=== PATIENT | female | born 1945 | race Caucasian/White ===

== ENCOUNTER 2021-02-19 09:55 | Outpatient (CLI) | payer MEDICARE, SELFPAY ==
--- NOTE | ~2021-02-19 | MM_ITS ---
EXAMINATION: MM screening fani BI w patrick HISTORY: Screening TECHNIQUE: Craniocaudal and mediolateral oblique 3-D tomosynthesis images were obtained and synthetic 2-D images were generated. CAD analysis was submitted and interpreted. COMPARISON: Comparison to multiple prior studies sequentially, with oldest reviewed study dated 06/25. BREAST PARENCHYMAL COMPOSITION: There are scattered areas of fibroglandular density. FINDINGS: There is no evidence of suspicious mass, calcification, or architectural distortion to sugg est malignancy in either breast. There has been no suspicious interval change. IMPRESSION: 1. No mammographic evidence of malignancy. 2. Recommend routine screening mammography in one year. BI-RADS Category 1: Negative Reviewed, dictated and finalized at location A.
== END 2021-02-19 09:56 | disposition home or self-care (01) ==
LOC: ANHIMG 10:01
PROVIDERS: PCP Family Medicine; Visit Provider Family Medicine
DX: Z12.31 Encounter for screening mammogram for malignant neoplasm of breast (principal)
CPT/HCPCS: 77063; 77067

== ENCOUNTER 2022-02-25 09:52 | Outpatient (CLI) | payer MEDICARE, SELFPAY ==
--- NOTE | ~2022-02-25 | MM_ITS ---
EXAMINATION: MM screening fani BI w patrick HISTORY: Screening mammogram TECHNIQUE: Craniocaudal and mediolateral oblique 3-D tomosynthesis images were obtained and synthetic 2-D images were generated. CAD analysis was submitted and interpreted. COMPARISON: 02/19/2021, 09/07/2019, 01/07/2018 bilateral screening mammogram examinations BREAST PARENCHYMAL COMPOSITION: The breasts are almost entirely fatty. FINDINGS: Scattered bilateral benign calcifications. There is no evidence of suspicious mass, calcifi cation, or architectural distortion to suggest malignancy in either breast. There has been no suspici ous interval change. IMPRESSION: 1. No mammographic evidence of malignancy. 2. Recommend routine screening mammography in one year. BI-RADS Category 2: Benign finding(s). Reviewed, dictated and finalized at location A.
== END 2022-02-25 09:53 | disposition home or self-care (01) ==
LOC: ANHIMG 09:54
PROVIDERS: PCP Family Medicine; Visit Provider Family Medicine
DX: Z12.31 Encounter for screening mammogram for malignant neoplasm of breast (principal)
CPT/HCPCS: 77063; 77067

== ENCOUNTER 2022-07-24 01:16 | Day surgery (SDC) | payer MEDICARE, SELFPAY ==
[2022-07-23 15:32] VITALS: BMI 39.3
[2022-07-24] VITALS (9 sets, daily range): BP systolic 91–125; BP diastolic 52–72; PULSE 68–147; RESP 15–24; O2SAT 97–100
--- NOTE | 2022-07-24 11:25 | ECG_ITS ---
Measurements Intervals [place] Rate: 129 P: [place]: 0 QRS: 0 QRSD: 92 T: 0 QT: 173 QTc: 253 Interpretive Statements ATRIAL FIBRILLATION WITH RAPID VENTRICULAR RESPONSE NONSPECIFIC ST & T-WAVE ABNORMALITY ABNORMAL RHYTHM ECG COMPARED TO ECG 04/05/2019 09:47:32 ATRIAL FIBRILLATION REPLACES SINUS RHYTHM Electronically Signed On 07-24-2022 14:08:56 CDT by Hugo Whitten M.D.
[2022-07-24] MEDS: SODIUM CHLORIDE 0.9% IV 500 ML 30 ML IV CONT (11:53)
[2022-07-24 11:55] LABS: Anion Gap 13 mmol/L (8-16); Blood Urea Nitrogen 19 mg/dL (7-17); Carbon Dioxide 28 mmol/L (22-30); Chloride 101 mmol/L (98-107); Estimated CRCL calculation 68 ml/min; Estimated Glomerular Filt Rate > 60; Glucose 161 mg/dL (65-110); Magnesium 1.6 mg/dL (1.6-2.3); Potassium 3.3 mmol/L (3.4-5.0); Sodium 142 mmol/L (137-145)
--- NOTE | 2022-07-24 11:59 | SUR.PREOP ---
Informed home specialistLILY Esteban that patient missed [facility] for endoscopy on 07/04, 07/05, 07/06 and AM of 07/07. She resumed PM 07/07. and that I was going to notify Dr. Whitten to see if she needed a WAYLON. Per Eulalia Whitten was notified yesterday and it is also mentioned in the office note per Maki Hunter NP and that reportedly WAYLON was not needed.
--- NOTE | 2022-07-24 12:11 | SUR.PREOP ---
Dr. Whitten contacted and informed patient's HR has been 130s-150s at times and BP now 98/57. Also informed BMI is close to 40, potassium level is 3.3 and Mag level 1.6 on today's labs. Patient reported some new lightheadedness as BP has trended down some today.
[2022-07-24] MEDS: POTASSIUM CHLORIDE 20 MEQ TABLET 40 MEQ PO (12:46)
--- NOTE | 2022-07-24 13:21 | SUR.PREOP ---
Dr. Whitten at bedside discussing procedure with patient and .
--- NOTE | 2022-07-24 13:31 | WPDMODSED ---
Moderate Sedation Note-Pt Data Patient Data Diagnosis: Recurrent atrial fibrillation Obesity Sleep apnea Present Complaint: Palpitations Procedure to be performed/Plan: DC cardioversion Allergies Allergy/AdvReac Type Severity Reaction Status Date / Time aspirin AdvReac Unknown Nausea Verified 07/24/22 11:33 ibuprofen AdvReac Unknown Nausea Verified 07/24/22 11:33 meloxicam AdvReac Unknown Nausea Verified 07/24/22 11:33 Home Medications Medication Instructions Recorded Confirmed Type Adults Multivitamin 1 tablet PO DAILY 07/23/22 07/23/22 History Bifidobacterium infantis 4 mg PO DAILY 07/23/22 07/24/22 History Ocuvite 1 tablet PO DAILY 07/23/22 07/24/22 History apixaban 5 mg tablet (Eliquis) 5 mg PO BID 07/23/22 07/24/22 History atorvastatin 10 mg tablet 10 mg PO DAILY 07/23/22 07/24/22 History calcium carbonate-vitamin D3 500 unit PO DAILY 07/23/22 07/24/22 History candesartan 4 mg PO DAILY 07/23/22 07/24/22 History hydrochlorothiazide 25 mg tablet 25 mg PO DAILY 07/23/22 07/24/22 History metformin 500 mg tablet 500 mg PO BID 07/23/22 07/24/22 History potassium chloride 10 mEq 10 meq PO DAILY 07/23/22 07/24/22 History tablet,extended release(part/cryst) sotalol 80 mg tablet 40 mg PO BID 07/23/22 07/24/22 History Current Medications: Active Medications Apixaban (Apixaban 5 Mg Tablet) 5 mg PO BID [facility] Atorvastatin Calcium (Atorvastatin 10 Mg Tablet) 10 mg PO DAILY [facility] Hydrochlorothiazide (Hydrochlorothiazide 25 Mg Tablet) 25 mg PO DAILY [facility] Sodium Chloride (Normal Saline Iv) 500 mls @ 30 mls/hr IV CONT .[id number] [id number] Stop: 07/25/22 04:15 Last Admin: 07/24/22 11:53 Dose: 30 mls/hr Metformin HCl (Metformin Hcl 500 Mg Tablet) 500 mg PO BID [facility] Non-Formulary Medication (Adults Multivitamin) 1 tablet PO DAILY [facility] Stop: 08/24/22 08:59 Non-Formulary Medication (Bifidobacterium Infantis) 4 mg PO DAILY [facility] Stop: 08/24/22 08:59 Non-Formulary Medication (Calcium Carbonate-Vitamin D3) 500 unit PO DAILY [facility] Stop: 08/24/22 08:59 Non-Formulary Medication (Candesartan) 4 mg PO DAILY [facility] Stop: 08/24/22 08:59 Non-Formulary Medication (Ocuvite) 1 tablet PO DAILY [facility] Stop: 08/24/22 08:59 Potassium Chloride (Potassium Chloride 10 Meq Tablet.Er) 10 meq PO DAILY [facility] Sotalol HCl (Sotalol Hcl 40 Mg Tablet) 40 mg PO BID [facility] Sedation/Anesthesia: No previous sedation/anesthesia problems (including family history). [facility] Family History Family History (Updated 03/24/17 @ 15:45 by DOCTOR UNKNOWN) Other Cerebrovascular accident Family history of arthritis Social History Social History Smoking status: Never smoker Alcohol intake: current Living arrangements: with family Spiritual care concerns: No Mod Sed Physical Exam Physical Exam Pre Procedural Exam: Normal: Neck, Throat, Airway, Lungs, Heart Size, Neuro Exam and Extremities and Variation: Appearance (Pleasant obese lady no distress), Heart Rate and Heart Rhythm (Tachycardic/irregularly irregular) Hours since solid foods: 12 Hours since liquid intake: 12 Mallampati Classification: class II Internal Medicine - PN: Obj Da Vital Signs Vital Signs: Vital Signs - 24 hr 07/24/22 11:46 Pulse Rate 83 Respiratory Rate 17 Blood Pressure 120/67 Pulse Oximetry 99 Oxygen Delivery Room Air Meds/Results Medications: Active Medications Generic Name Dose Route Start Last Admin Trade Name Freq PRN Reason Stop Dose Admin Apixaban 5 mg 07/24/22 17:00 Apixaban 5 Mg Tablet PO BID [facility] Atorvastatin Calcium 10 mg 07/25/22 09:00 Atorvastatin 10 Mg Tablet PO DAILY [facility] Hydrochlorothiazide 25 mg 07/25/22 09:00 Hydrochlorothiazide 25 Mg Tablet PO DAILY [facility] Sodium Chloride 500 mls @ 30 mls/hr 07/24/22 11:36 07/24/22 11:53 Normal Saline Iv IV CONT 07/25/22 04:15 30 mls/hr .[id number] JYOTI Administration Metformin HCl 500 mg 07/24/22 17:00 Metformin Hcl 500 Mg Tablet PO BID [facility] Non-Formular
--- NOTE | 2022-07-24 13:32 | WPDCARDPROC ---
Cardiac Cath Procedure Note Date of procedure:: 07/24/22 Performing physician:: Hugo Whitten MD Indication:: Recurrent atrial fibrillation Brief clinical history:: This is a 77-year-old lady with a history of paroxysmal atrial fibrillation which has been attributed to obesity and sleep apnea. She was seen in the office yesterday with a symptomatic recurrence of atrial fibrillation and was admitted today as an outpatient for an attempt at cardioversion Procedure Procedure performed:: DC cardioversion Sedation/Medication given:: Intravenous propofol total dosage to 60 mg Estimated blood loss:: No blood loss Procedure note:: Patient was brought to the cardiac catheterization lab holding area in the postabsorptive state she had defibrillator patches placed in AP position and was placed in the supine positions. The defibrillator was synchronized at 200 joules. She was then given intravenous propofol in aliquots a total dosage of 60 mg provided very good sedation. She was counter shocked with 200 joules x1 shock restoring normal sinus rhythm. Findings:: As above Conclusion:: Successful uncomplicated DC cardioversion terminating atrial fibrillation restoring sinus rhythm using 200 joules x1 shock Hugo Whitten MD [facility]
--- NOTE | 2022-07-24 14:00 | ECG_ITS ---
Measurements Intervals [place] Rate: 76 P: 36 [place]: 130 QRS: -8 QRSD: 105 T: 73 QT: 413 QTc: 465 Interpretive Statements SINUS RHYTHM WITH OCCASIONAL SUPRAVENTRICULAR PREMATURE COMPLEXES NONSPECIFIC T-WAVE ABNORMALITY COMPARED TO ECG 07/24/2022 11:25:02 SINUS RHYTHM REPLACES ATRIAL FIBRILLATION Electronically Signed On 07-24-2022 14:13:11 CDT by Hugo Whitten M.D.
== END 2022-07-24 14:30 | disposition home or self-care (01) ==
LOC: ANHCATHLAB 01:21 → ANHCARD 12:59 → ANHCATHLAB 07-31 09:19
PROVIDERS: PCP Family Medicine; Visit Provider Specialist
PROC: 5A2204Z Restoration of Cardiac Rhythm, Single (ICD-10-PCS; principal; 2022-07-24 12:30)
DX: I48.0 Paroxysmal atrial fibrillation (principal); G47.30 Sleep apnea, unspecified; E66.9 Obesity, unspecified; Z68.39 Body mass index [BMI] 39.0-39.9, adult; Z79.01 Long term (current) use of anticoagulants; Z79.84 Long term (current) use of oral hypoglycemic drugs
CPT/HCPCS: 36415; 80048; 83735; 92960; A9270; J2704; J7040

== ENCOUNTER → 2023-09-10 13:15 | Outpatient (CLI) | payer MEDICARE, SELFPAY ==
--- NOTE | ~2023-09-10 | XR_ITS ---
Left Knee Technique: AP, lateral, and sunrise views were obtained. Clinical History: Pain Findings: No fracture or dislocation is seen. Osseous alignment is anatomic. There is moderate to adv anced tricompartment osteoarthritis, worst at the medial and patellofemoral compartments. There is pr ominent osteophyte formation and medial and patellofemoral compartment narrowing. Soft tissues are un remarkable. No joint effusion is seen. Impression: Moderate to advanced tricompartmental osteoarthritis, as detailed above. Reviewed, dictated and finalized at location M. [employer] Impression: Moderate to advanced tricompartmental osteoarthritis, as detailed above.
== END ==
PROVIDERS: PCP Family Medicine; Visit Provider Family Medicine
DX: M17.12 Unilateral primary osteoarthritis, left knee (principal)
CPT/HCPCS: 73562

== ENCOUNTER 2024-08-02 20:44 | Emergency (ER) | payer MEDICARE, SELFPAY ==
[2024-08-02 20:49] VITALS: BP 193/70; PULSE 73; RESP 16; TEMP 36.8; O2SAT 98
[2024-08-02 23:20] VITALS: BP 164/60; PULSE 63; RESP 15; O2SAT 97
--- NOTE | 2024-08-03 01:21 | ECG_ITS ---
Test Date: 2024-08-03 01:33:51 Measurements Intervals [place] Rate: 60 P: 36 MS: 154 QRS: -18 QRSD: 118 T: 40 QT: 456 QTc: 457 Interpretive Statements SINUS RHYTHM MODERATE INTRAVENTRICULAR CONDUCTION DELAY [110+ ms QRS DURATION] No previous ECG available for comparison Electronically Signed On 08-03-2024 11:42:48 CDT by Lee Jaramillo M.D.
[2024-08-03 01:39] LABS: Basophils Percent Auto 0.4 % (0.2-1.2); Eosinophils Absolute Auto 0.2 K/mm3 (0-0.3); Eosinophils Percent Auto 2.1 % (0-4.4); Hematocrit 39.7 % (37.0-47.0); Hemoglobin 13.3 g/dL (12.0-15.0); Immature Granulocyte Absolute 0.04 K/mm3 (0.00-0.031); Immature Granulocyte Percent A 0.4 % (0-0.5); Lymphocytes Absolute Auto 2.15 K/mm3 (0.9-3.2); Lymphocytes Percent Auto 20.1 % (18.3-44.2); Mean Corpuscular HGB Conc 33.5 g/dl (32-36); Mean Corpuscular Hemoglobin 30.4 pg (26-34); Mean Corpuscular Volume 90.6 fl (80-100); Mean Platelet Volume 9.5 fl (7.4-10.4); Monocytes Absolute Auto 0.9 K/mm3 (0.1-0.6); Monocytes Percent Auto 7.9 % (2.6-8.5); Neutrophils Absolute Auto 7.4 K/mm3 (1.3-6.7); Neutrophils Percent Auto 69.1 % (45.5-73.1); Platelet Count Result 190 k/mm3 (150-375); Red Blood Count 4.38 M/mm3 (4.2-5.4); Red Cell Distribution Width 13.4 % (11.5-14.5); White Blood Count 10.7 K/mm3 (4.5-10.0)
[2024-08-03 01:47] LABS: Alanine Aminotransferase 17 U/L (6-35); Albumin Level 4.1 g/dL (3.5-5.1); Alkaline Phosphatase 67 U/L (38-126); Anion Gap 5 mmol/L (4-12); Aspartate Amino Transferase 22 U/L (14-36); Bilirubin,Total 0.6 mg/dL (0.2-1.3); Blood Urea Nitrogen 18 mg/dL (7-17); Calcium 9.1 mg/dL (8.4-10.2); Carbon Dioxide 30 mmol/L (22-30); Chloride 104 mmol/L (98-107); Estimated CRCL calculation 77 ml/min; Estimated Glomerular Filt Rate > 60; Glucose 133 mg/dL (65-110); Potassium 3.5 mmol/L (3.4-5.0); Sodium 139 mmol/L (137-145)
[2024-08-03 01:56] VITALS: BP 152/66; PULSE 60; RESP 16; O2SAT 98
[2024-08-03 01:58] LABS: Troponin I < 0.012 ng/mL (0.000-0.034)
--- NOTE | 2024-08-03 02:17 | ED_ITS ---
HPI - General Adult General Chief complaint: Recheck/Abnormal Lab/Rx Stated complaint: blood pressure high Time Seen by Provider: 08/03/24 01:03 History of Present Illness HPI narrative: Patient 79-year-old female presents emergency department chief complaint of hypertension. Patient reports she has history of hypertension reports that she has noticed her blood pressure is running on the higher side the patient reports that today she had some tightness in her chest and decided to come to the emergency department this evening. Related Data Home Medications Medication Instructions Recorded Confirmed Adults Multivitamin 1 tablet PO DAILY 07/23/22 05/25/24 Bifidobacterium infantis 4 mg PO DAILY 07/23/22 05/25/24 Ocuvite 1 tablet PO DAILY 07/23/22 05/25/24 calcium carbonate-vitamin D3 500 unit PO DAILY 07/23/22 05/25/24 Allergies Allergy/AdvReac Type Severity Reaction Status Date / Time aspirin AdvReac Unknown Nausea Verified 08/02/24 20:49 ibuprofen AdvReac Unknown Nausea Verified 08/02/24 20:49 meloxicam AdvReac Unknown Nausea Verified 08/02/24 20:49 Review of Systems Review of Systems: A 10 system review of systems was completed on the patient and is negative except for what is stated in the HPI. Nursing and ancillary documentation was reviewed. 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 Chronic atrial fibrillation, unspecified Essential (primary) hypertension Morbid (severe) obesity due to excess calories Obstructive sleep apnea (adult) (pediatric) Osteoarthritis of both knees Pure hypercholesterolemia, unspecified Secondary pulmonary arterial hypertension Type 2 diabetes mellitus without complications Family History Family History Other Cerebrovascular accident Family history of arthritis Social History Social History Smoking status: Never smoker Alcohol intake: current Alcohol use details: social Substance use: never Substance use type: does not use Lack of Transportation: No Lack of Food: Never True Current Housing: I Have Housing Concerned About Future Housing: No Difficulty Paying Gas/Electric Bills: No Difficulty Paying for Meds: No Currently Unemployed: YES Education: Bachelor's Degree Difficulty w/ Childcare or Family Care: No Living arrangements: with family Occupation/Education: retired Gender identity (if verbalized by the patient): Female Sexual Orientation (if Verbalized by the Patient): Straight or Heterosexual Spiritual care concerns: No Exam Narrative: GENERAL: Well-appearing, well-nourished, and in no acute distress. HEAD: Normocephalic, atraumatic. EYES: PERRLA and EOMI. ENT: Nares clear, no rhinorrhea or epistaxis. Mucous membranes moist. NECK: Supple. CHEST: Clear to auscultation. No respiratory distress. HEART: Regular rate and rhythm. No murmur heard. Normal peripheral pulses. ABDOMEN: Soft, nontender, nondistended, normal active bowel sounds. EXTREMITIES: Normal range of motion. No edema. SKIN: Warm, dry, no rash. NEURO: No focal deficits. Alert and oriented x3. PSYCH: Normal mood and affect. Course Vital Signs Vital signs: Vital Signs Temperature 36.8 C 08/02/24 20:49 Pulse Rate 73 08/02/24 20:49 Respiratory Rate 16 08/02/24 20:49 Blood Pressure 193/70 H 08/02/24 20:49 Pulse Oximetry 98 08/02/24 20:49 Temperature 36.8 C 08/02/24 20:49 Pulse Rate 60 08/03/24 01:56 Respiratory Rate 16 08/03/24 01:56 Blood Pressure 152/66 H 08/03/24 01:56 Pulse Oximetry 98 08/03/24 01:56 Medical Decision Making MDM Narrative Medical decision making narrative: Differential diagnosis includes hypertensive crisis, atypical chest pain, essential hypertension EKG was obtained that showed no acute ischemic changes CBC of CMP showed no acute abnormalities initial troponin was negative Vital Signs Vital Signs: Vital Signs Temperature 36.8 C 08/02/24 20:49 Pulse Rate 73 08/02/24 20:49 Respiratory Rate 16 08/02/24 20:49 Blood Pressure 193/70 H 08/02/24 20:49 Pulse Oximetry 98 08/02/24 20:49 Temperature 36.8 C 08/02/24 20:49 Pulse Rate 60 08/03/24 01:56 Respiratory Rate 16 08/03/24 01:56 Blood Pressure 152/66 H 08/03/24 01:56 Pulse Oximetry 98 08/03/24 01:56 Lab Data 08/03/24 01:32 08/03/24 01:32 Labs: Lab Results 08/03/24 08/03/24 Range/Units 01:24 01:32 WBC 10.7 H (4.5-10.0) K/mm3 RBC 4.38 (4.2-5.4) M/mm3 Hgb 13.3 (12.0-15.0) g/dL Hct 39.7 (37.0-47.0) % MCV 90.6 (80-100) fl MCH 30.4 (26-34) pg MCHC 33.5 (32-36) g/dl RDW 13.4 (11.5-14.5) % Plt Count 190 (150-375) k/mm3 MPV 9.5 (7.4-10.4) fl Immature Gran % (Auto) 0.4 (0-0.5) % Neut % (Auto) 69.1 (45.5-73.1) % Lymph % (Auto) 20.1 (18.3-44.2) % [place] % (Auto) 7.9 (2.6-8.5) % Eos % (Auto) 2.1 (0-4.4) % Baso % (Auto) 0.4 (0.2-1.2) % Lymph # (Auto) 2.15 (0.9-3.2) K/mm3 [place] # (Auto) 0.9 H (0.1-0.6) K/mm3 Eos # (Auto) 0.2 (0-0.3) K/mm3 Baso # (Auto) 0.0 (0.0-0.1) K/mm3 Abs Immat Gran (auto) 0.04 H (0.00-0.031) K/mm3 Absolute Neuts (auto) 7.4 H (1.3-6.7) K/mm3 Absolute Nucleated RBC 0.000 (0.0-0.012) K/mm3 Nucleated RBC % 0.0 (0.0-0.2) % Sodium 139 (137-145) mmol/L Potassium 3.5 (3.4-5.0) mmol/L Chloride 104 (98-107) mmol/L Carbon Dioxide 30 (22-30) mmol/L Anion Gap 5 (4-12) mmol/L BUN 18 H (7-17) mg/dL Creatinine 0.60 L (0.7-1.0) mg/dL Estim Creat Clear Calc 77 ml/min Estimated GFR > 60 (59 - ) Glucose 133 H (65-110) mg/dL Calcium 9.1 (8.4-10.2) mg/dL Total Bilirubin 0.6 (0.2-1.3) mg/dL AST 22 (14-36) U/L ALT 17 (6-35) U/L Alkaline Phosphatase 67 (38-126) U/L Troponin I < 0.012 (0.000-0.034) ng/mL Total Protein 7.0 (6.3-8.2) g/dL Albumin 4.1 (3.5-5.1) g/dL Urine Color Pending Urine Appearance Pending Urine pH Pending Ur Specific [place] Pending Urine Protein Pending Urine Glucose (UA) Pending Urine Ketones Pending Ur Blood (Man) Pending Urine Nitrate Pending Urine Bilirubin Pending Urine Urobilinogen Pending Leukocyte Esterase Rfl Pending Discharge Plan Discharge Clinical Impression: Hypertension, Atypical chest pain Patient Disposition: Home, Self-Care Condition: Stable Instructions: Antibiotic Form, Chest Pain (ED), Hypertension (ED) Prescriptions: No Action (DME) lancets [OneTouch Delica Plus Lancet] 33 gauge misc See Rx Instructions .Route Qty: 100 3RF Rx Instructions: use to test blood sugar once a day candesartan 4 mg tablet 4 mg PO DAILY Qty: 90 1RF (DME) compress.stocking,knee,reg,lrg Misc See Rx Instructions .Route Qty: 2 0RF Rx Instructions: As directed furosemide 20 mg tablet 20 mg PO QAM Qty: 90 1RF Adults Multivitamin 1 tablet PO DAILY Bifidobacterium infantis 4 mg PO DAILY Ocuvite 1 tablet PO DAILY calcium carbonate-vitamin D3 500 unit PO DAILY metoprolol succinate 50 mg Tablet Extended Release 24 Hr 50 mg PO QAM Qty: 30 5RF flecainide 100 mg Tablet 100 mg PO Q12HR Qty: 60 5RF (DME) OneTouch Verio test strips Strip See Rx Instructions .ROUTE .COMPLEX Qty: 150 0RF Dose Instruction: TEST BLOOD SUGAR TWICE DAILY Rx Instructions: TEST BLOOD SUGAR TWICE DAILY atorvastatin 10 mg tablet 10 mg PO DAILY Qty: 100 1RF Eliquis 5 mg tablet 5 mg PO BID Qty: 180 1RF potassium chloride 10 mEq tablet extended release See Rx Instructions .ROUTE .COMPLEX Qty: 90 1RF Dose Instruction: TAKE 1 TABLET BY MOUTH EVERY DAY WITH FOOD Rx Instructions: TAKE 1 TABLET BY MOUTH EVERY DAY WITH FOOD metformin 500 mg tablet 500 mg PO BID Qty: 200 1RF Follow-up/Referrals: Kyle Rosario MD [Primary Care Provider] - Time of Disposition: 02:35
[2024-08-03 02:21] LABS: Add Urine Microscopic? YES; Appearance Urine Cloudy (Clear); Bacteria Urine None Seen /hpf; Bilirubin Urine Negative (Negative); Blood Urine Negative (Negative); Calcium Oxalate Crystals Urine Present /hpf; Color Urine Yellow (Yellow); Glucose Urine UA Negative (Negative); Ketones Urine Trace mg/dL (Negative); Leukocyte Esterase Ur Negative LEU/UL (Negative); Need Manual Microscopic Reviewed; Nitrate Urine Negative (Negative); Non Pathogenic Casts 0-2; Protein Urine Negative (Negative); Specific Grav Ur 1.027 (1.001-1.035); Squamous Epithelial Cell Urine None Seen /hpf (Few); WBC Urine 0-5 /hpf (0-3)
== END 2024-08-03 02:45 | disposition home or self-care (01) ==
PROVIDERS: Emergency Provider Emergency Medicine; PCP Family Medicine
DX: R07.89 Other chest pain (principal); I10 Essential (primary) hypertension; I48.20 Chronic atrial fibrillation, unspecified; G47.33 Obstructive sleep apnea (adult) (pediatric); E78.00 Pure hypercholesterolemia, unspecified; E11.9 Type 2 diabetes mellitus without complications; E66.01 Morbid (severe) obesity due to excess calories; Z68.38 Body mass index [BMI] 38.0-38.9, adult
CPT/HCPCS: 36415; 80053; 81001; 84484; 85025; 93005; 99284